=== PATIENT | female | born 2000 | race African-American/Black ===

== ENCOUNTER 2020-05-05 14:44 | Emergency (ER) | payer MEDICAID ==
[~2020-05-05] VITALS: Ht 160 cm; Wt 54.0 kg
[2020-05-05 14:54] VITALS: BP 101/65
--- NOTE | 2020-05-05 15:42 | NUR ---
pt arrives to ER with complaints of brownish vaginal discharge x few days.
[2020-05-05 15:51] LABS: APPEARANCE,URINE CLOUDY; BILIRUBIN, URINE NEGATIVE (NEGATIVE); GLUCOSE, URINE (UA) NEGATIVE (NEGATIVE); KETONES,URINE 1+ (NEGATIVE); LEUKOCYTE ESTERASE ,URINE 3+ (NEGATIVE); NITRITE,URINE NEGATIVE (NEGATIVE); PH,URINE 5 (4.5-8.0); PROTEIN,URINE 1+ (NEGATIVE); UROBILINOGEN,URINE 1 MG/DL (0.0-1.0)
[2020-05-05 15:53] LABS: COLOR,URINE YELLOW
--- NOTE | 2020-05-05 16:37 | Diagnostic Imaging Report ---
EXAM: US Pelvic w/Transvag CLINICAL HISTORY: Pelvic pain and vaginal bleeding. COMPARISON: None TECHNIQUE: Ultrasound examination of the pelvis includes grayscale images, and color and spectral doppler analysis. FINDINGS: Transabdominal and transvaginal technique utilized. The uterus measures 6.9 x 5.6 x 4.1 cm. Myometrium is slightly heterogeneous. Endometrial stripe is 4 mm. No definite endometrial lesion noted. Right ovary measures 2.7 x 1.5 x 2.8 cm. Left ovary measures 2.8 x 1.9 x 2.6 cm. Normal vascular flow to both ovaries noted. There are prominent vascularity noted in bilateral adnexal regions. In the right clinical setting, consider pelvic congestion syndrome. There is no free fluid. IMPRESSION: MILDLY HETEROGENEOUS UTERUS. NO ABNORMAL ENDOMETRIAL THICKENING OR DEFINITE ENDOMETRIAL LESION IDENTIFIED. PROMINENT VASCULARITY IN BILATERAL ADNEXAL REGIONS WITH DISTENDED VEINS. CONSIDER PELVIC CONGESTION SYNDROME IN THE RIGHT CLINICAL SETTINGS.
--- NOTE | 2020-05-05 16:55 | Emergency Room Report ---
History of Present Illness General Chief Complaint: Vaginal Source: Patient Present Illness HPI 20-year-old female with no significant past medical history here complaining of of 3 days of vaginal spotting. Patient reports that her last regular period was 2 weeks ago and she usually gets them every 28 days. Reports that she is sexually active, taking control pills however does not recall the name, no condom use. Denies any vaginal discharge. Reports that had a UTI about a month ago and took antibiotics. Does not recall which antibiotic she took. Denies any urinary frequency, urgency, hematuria, diffuse abdominal pain. Denies fever and chills, nausea vomiting. Denies any vaginal clotting. Appears to be stable, with stable vital signs. Denies drug use, tobacco smoke, alcohol intake. Denies any strenuous physical activity. 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 COVID-19 Screening: Negative COVID-19 COVID-19 Testing Source: [facility] Patient History Past Medical History: see triage record Past Surgical History: none Pertinent Family History: none Last Menstrual Period: 2 weeks ago Now: No Immunizations: UTD Reviewed Nursing Documentation: PMH: Agreed; PSxH: Agreed Nursing Documentation-PMH Past Medical History: No History, Except For Review of Systems All Other Systems: negative except mentioned in HPI Physical Exam Vital Signs Date Time Temp Pulse Resp B/P (MAP) Pulse Ox O2 Delivery O2 Flow Rate FiO2 05/05/20 14:47 98.2 89 15 101/65 (77) 96 Room Air Sp02 EP Interpretation: reviewed, normal General Appearance: no apparent distress, alert, GCS 15, non-toxic Head: normocephalic, atraumatic Eyes: bilateral eye normal inspection, bilateral eye PERRL ENT: hearing grossly normal, normal pharynx, no angioedema, normal voice Neck: supple Respiratory: chest non-tender, lungs clear, normal breath sounds, no respiratory distress, no retraction, speaking full sentences Cardiovascular #1: regular rate, rhythm, no edema, no murmur Gastrointestinal: soft, no mass, no organomegaly, no peritonitis, no bruit, non-distended Musculoskeletal: back normal, no calf tenderness Neurologic: alert, motor strength/tone normal, oriented x3, sensory intact, responsive, speech normal Psychiatric: judgement/insight normal, memory normal, mood/affect normal, no suicidal/homicidal ideation Skin: no rash Lymphatic: no adenopathy Medical Decision Making PA Attestation All my diagnosis and treatment plans were reviewed ad discussed with my supervising physician Dr. Patricia Diagnostic Impression: Primary Impression: UTI (urinary tract infection) Additional Impression: Vaginal spotting ER Course 20-year-old female with no significant past medical history here complaining of of 3 days of vaginal spotting. Patient reports that her last regular period was 2 weeks ago and she usually gets them every 28 days. Reports that she is sexual ly active, taking control pills however does not recall the name, no condom use. Denies any vaginal discharge. Reports that had a UTI about a month ago and took antibiotics. Does not recall which antibiotic she took. Denies any urinary frequency, urgency, hematuria, diffuse abdominal pain. Denies fever and chills, nausea vomiting. Denies any vaginal clotting. Appears to be stable, with stable vital signs. Denies drug use, tobacco smoke, alcohol intake. Denies any strenuous physical activity. Ddx considered but are not limited to: UTI, intrauterine , ectopic , dysfunctional uterine bleeding, uterine fibroids, pyelonephritis, urinary incontinence, prolapsed bladder Vital signs: are WNL, pt. is afebrile H&PE are most consistent with: UTI, vaginal spotting ORDERS: UA, urine cx, urine test, pelvic ultrasound, Keflex ED INTERVENTIONS: None required at this time. DISCHARGE: At this time pt. is stable for d/c to home. Will provide printed patient care instructions, and any necessary prescriptions. Care plan and follow up instructions have been discussed with the patient prior to discharge. Advised patient take medication as directed, follow-up with MANAGER MERCHANDISING, if worsening symptom return to emergency room. At this time spotting is mostly secondary to ovulation. CT/MRI/US Diagnostic Results CT/MRI/US Diagnostic Results : Imaging Test Ordered: Pelvic ultrasound Impression IMPRESSION: MILDLY HETEROGENEOUS UTERUS. NO ABNORMAL ENDOMETRIAL THICKENING OR DEFINITE ENDOMETRIAL LESION IDENTIFIED. PROMINENT VASCULARITY IN BILATERAL ADNEXAL REGIONS WITH DISTENDED VEINS. CONSIDER PELVIC CONGESTION SYNDROME IN THE RIGHT CLINICAL SETTINGS. Last Vital Signs Date Time Temp Pulse Resp B/P (MAP) Pulse Ox O2 Delivery O2 Flow Rate FiO2 05/05/20 14:54 98.2 15 101/65 96 Room Air 05/05/20 14:47 89 Disposition: HOME, SELF-CARE Condition: Stable Scripts Cephalexin* (KEFLEX*) 500 Mg Capsule 500 MG ORAL EVERY 12 HOURS for 7 Days, #14 CAP 0 Refills Prov: Anthony Maxwell 05/05/20 Referrals: [facility],REFERRING (PCP) Patient Instructions: Abnormal Uterine Bleeding, Urinary Tract Infection, [id number] Additional Instructions: Take medication as directed, follow up with MANAGER MERCHAND[facility], if worsening symptoms return to ER. Anthony Maxwell May 05, 2020 16:55
[2020-05-05] MEDS ORDERED: CEPHALEXIN500 MG ORAL (16:56)
== END 2020-05-05 17:07 | disposition home or self-care (01) ==
LOC: EMR 15:13
DX: N39.0 Urinary tract infection, site not specified (principal); N93.8 Other specified abnormal uterine and vaginal bleeding
CPT/HCPCS: 76830; 76856; 81003; 81025; 87086; Z7502; 99284